=== PATIENT | male | born 1965 | race Caucasian/White ===

== ENCOUNTER 2017-08-17 10:53 | Emergency (ER) | payer OTHER ==
[2017-08-17 11:50] LABS: ADD MAN DIFF? NO
[2017-08-17 11:54] LABS: AGAP ISTAT 12 mmol/L (6-14); BASO # 0.1 x10^3/uL (0.0-0.2); BASO % 1 % (0-3); BUN ISTAT 23 mg/dL (8-26); CHLORIDE ISTAT 104 mmol/L (98-110); EOS % 0 % (0-3); GLUCOSE ISTAT 97 mg/dL (70-99); HEMATOCRIT 48.2 % (39.0-53.0); HEMATOCRIT ISTAT 49 % (37-52); HEMOGLOBIN 16.5 g/dL (13.0-17.5); HEMOGLOBIN ISTAT 16.7 g/dL (14-18); ION CA ISTAT 1.31 mmol/L (1.13-1.32); LYMPH # 0.7 x10^3/uL (1.0-4.8); LYMPH % 7 % (24-48); MEAN CORPUSCULAR HEMOGLOBIN 32 pg (25-35); MEAN CORPUSCULAR HGB CONC 34 g/dL (31-37); MEAN CORPUSCULAR VOLUME 92 fL (79-100); MONO # 0.9 x10^3/uL (0.0-1.1); MONO % 9 % (0-9); NEUT # 8.1 x10^3uL (1.8-7.7); NEUT % 83 % (31-73); PLATELET COUNT 234 x10^3/uL (140-400); POTASSIUM ISTAT 4.7 mmol/L (3.5-5.0); RED BLOOD COUNT 5.21 x10^6/uL (4.30-5.70); RED CELL DISTRIBUTION WIDTH 12.5 % (11.5-14.5); SODIUM ISTAT 139 mmol/L (135-145); TOT CO2 ISTAT 29 mmol/L (23-32); WHITE BLOOD COUNT 9.8 x10^3/uL (4.0-11.0)
[2017-08-17] MEDS ORDERED: CONTRAST GIVEN MC (12:30)
[2017-08-17] MEDS: IOHEXOL 300 MG/ML 100ML VIAL. IV (12:47)
[2017-08-17 14:11] LABS: ANION GAP 9 (6-14); BLOOD UREA NITROGEN 18 mg/dL (8-26); CALCIUM 9.4 mg/dL (8.5-10.1); CARBON DIOXIDE 28 mmol/L (21-32); CHLORIDE 104 mmol/L (98-107); CREATININE 1.1 mg/dL (0.7-1.3); GFR 70.3; GLUCOSE 93 mg/dL (70-99); POTASSIUM 4.6 mmol/L (3.5-5.1); SODIUM 141 mmol/L (136-145)
== END 2017-08-17 14:03 | disposition home or self-care (01) ==
LOC: ER 10:53
DX: R22.1 Localized swelling, mass and lump, neck (principal); J32.9 Chronic sinusitis, unspecified
CPT/HCPCS: 36415; 70491; 80047; 80048; 85025; 99285-25; Q9967